=== PATIENT | male | born 1980 | race Caucasian/White ===

== ENCOUNTER 2017-08-21 18:05 | Emergency (ER) | payer OTHER ==
[~2017-08-21] VITALS: Ht 180.3 cm; Wt 72.6 kg
[~2017-08-21 18:05] MED LIST: AMOX500 PO; Anusol-HC 2.5%30 GM EXT; CEPH500 PO; CIPRSO OS; Colace100 MG PO; HYDACE5 PO; IBUP800 PO; LANS15EC PO; NAPR500 PO; Norco 5-325 Ta1 EACH PO; OXYACE5T PO; Omeprazole20 M1 PO; PENVK500 PO; PRED10 PO; Prednisone20 MG PO; RXCEPH500 PO; RXHYDACE PO; RXPENVK250 PO; RXTRAM50 PO; TRAM50 PO; Triamcinolone A15 G3 TOP; Vibramycin100 MG PO; Zofran8 MG PO
[2017-08-21] MEDS ORDERED: ROBITUSSIN COU237 ML PO (20:30)
[2017-08-21] MEDS ORDERED: IBUP600 PO (20:30)
[2017-08-21] MEDS ORDERED: OXYM.05NI (20:30)
== END 2017-08-21 20:42 | disposition home or self-care (01) ==
LOC: ER 18:05
DX: J40 Bronchitis, not specified as acute or chronic (principal); F17.210 Nicotine dependence, cigarettes, uncomplicated
CPT/HCPCS: 51798; 71046; 94640; 99283

== ENCOUNTER 2019-04-18 16:15 | Emergency (ER) | payer OTHER, BC ==
[~2019-04-18] VITALS: Ht 152.4 cm; Wt 74.8 kg
[~2019-04-18 16:15] MED LIST changes: +IBUP600 PO; +OXYM.05NI; +ROBITUSSIN COU237 ML PO
== END 2019-04-18 21:29 | disposition home or self-care (01) ==
LOC: ER 16:15
DX: S67.21XA Crushing injury of right hand, initial encounter (principal); W23.0XXA Caught, crushed, jammed, or pinched between moving objects, initial encounter; F17.210 Nicotine dependence, cigarettes, uncomplicated
CPT/HCPCS: 29125; 73110; 73130; 99283-25

== ENCOUNTER 2022-11-05 11:10 | Emergency (ER) | payer OTHER, BC ==
[~2022-11-05] VITALS: Ht 182.9 cm; Wt 77.1 kg
[2022-11-05 11:23] VITALS: BP 130/83
== END 2022-11-05 13:09 | disposition home or self-care (01) ==
LOC: ER 11:10
DX: M25.512 Pain in left shoulder (principal); F17.210 Nicotine dependence, cigarettes, uncomplicated; X50.1XXA Overexertion from prolonged static or awkward postures, initial encounter; Y92.89 Other specified places as the place of occurrence of the external cause; Y99.0 Civilian activity done for income or pay
CPT/HCPCS: 73030; J1885